=== PATIENT | female | born 1945 | race Caucasian/White ===

== ENCOUNTER 2021-05-22 05:55 | Day surgery (SDC) | payer MEDICARE ==
[2021-05-21 12:40] LABS: BASOPHILS % (AUTO) 0.4 % (0-1); EOSINOPHILS # (AUTO) 0.1 X10'3 (0-0.9); EOSINOPHILS % (AUTO) 1.1 % (0-6); HEMOGLOBIN 13.1 g/dl (12.0-16.0); LYMPHOCYTES # (AUTO) 2.6 X10'3 (1.1-4.8); LYMPHOCYTES % (AUTO) 36.6 % (21-51); MEAN CORPUSCULAR HEMOGLOBIN 27.6 PG (27.0-31.0); MEAN CORPUSCULAR HGB CONC 32.7 g/dL (33.0-36.5); MEAN CORPUSCULAR VOLUME 84.5 FL (78-98); MEAN PLATELET VOLUME 7.8 FL (7.4-10.4); MONOCYTES # (AUTO) 0.9 X10'3 (0-0.9); MONOCYTES % (AUTO) 12.7 % (2-12); NEUTROPHILS # (AUTO) 3.5 X10'3 (1.8-7.7); NEUTROPHILS % (AUTO) 49.2 % (42-75); PLATELET COUNT 223 X10'3 (140-440); RED BLOOD COUNT 4.73 X10'6 (4.20-5.60)
[2021-05-21 12:43] LABS: APTT 26 SECONDS (22-32)
[2021-05-21 12:51] LABS: ALBUMIN 3.5 G/DL (3.4-5.0); ANION GAP 10 (8-16); BLOOD UREA NITROGEN 17 MG/DL (7-18); CHLORIDE 106 MMOL/L (99-107); CREATININE 0.63 MG/DL (0.40-0.90); GLUCOSE 111 MG/DL (70-104); POTASSIUM 3.7 MMOL/L (3.5-5.1); SODIUM 142 MMOL/L (135-145); TOTAL CARBON DIOXIDE 26.1 MMOL/L (24-32); eGFR > 90 ML/MIN
[~2021-05-22] VITALS: Ht 167.6 cm; Wt 66.4 kg
[2021-05-22] VITALS (12 sets, daily range): BP systolic 91–122; BP diastolic 53–78
[2021-05-22] MEDS ORDERED: acetylcysteine 200 MG/ml 4ml vial PO SCH (06:18)
[2021-05-22] MEDS ORDERED: diphenhydrAMINE 25mg capsule PO PRN (06:20)
[2021-05-22] MEDS ORDERED: METF-1203 PO (06:21)
[2021-05-22] MEDS ORDERED: TRAM50TA2 PO (06:21)
[2021-05-22] MEDS ORDERED: SIMV-45 PO (06:21)
[2021-05-22] MEDS ORDERED: LEVO75TA7 PO (06:21)
[2021-05-22] MEDS ORDERED: OMEP10CA5 PO (06:21)
[2021-05-22] MEDS ORDERED: Tylenol PM PO (06:21)
[2021-05-22] MEDS ORDERED: LIDOcaine/PRILOcaine 5gm cream TP ONE (07:00)
[2021-05-22] MEDS: normal saline 1,000 ML IV SCH ×2 (07:09→12:01)
[2021-05-22] MEDS ORDERED: iohexol 350MG/ML 100ml bottle IV ONE ×2 (07:28→08:54)
[2021-05-22] MEDS ORDERED: fentaNYL/PF 50MCG/1 ML 2ML syringe ONE (07:28)
[2021-05-22] MEDS ORDERED: iohexol 350 MG/ML 50ML vial IV ONE (07:28)
[2021-05-22] MEDS ORDERED: verapamil 2.5 mg/ml inj IV ONE (07:28)
[2021-05-22] MEDS ORDERED: heparin 1,000unit/ml 10ml vial 10 ML ONE (07:28)
[2021-05-22] MEDS ORDERED: LIDOcaine 1% (10mg/ml)w/preservative inj. 20ml MDV ONE (07:28)
[2021-05-22] MEDS ORDERED: midazolam 1 mg/ML 2ml injection ONE (07:28)
[2021-05-22] MEDS ORDERED: nitroGLYCERIN-Tridil 50MG/D5W 250 ML IV ONE (07:28)
[2021-05-22 08:44] LABS: ISTAT HGB ART 12.6 g/dl (12.0-16.0); ISTAT Hct ART 37 %PCV (35-48); ISTAT O2 SATURATION ARTERIAL 97 % (95-98); ISTAT SOURCE ART
[2021-05-22] MEDS ORDERED: heparin 25,000 UNIT/250ml bag 250 ML IV ONE (08:51)
[2021-05-22] MEDS ORDERED: clopidogrel 300mg tablet ONE (09:12)
[2021-05-22] MEDS ORDERED: aspirin 81mg tab.chew PO ONE (10:00)
[2021-05-22 10:13] LABS: ISTAT Hct MIX 36 %PCV (35-48); ISTAT O2 SATURATION MIX VENOUS 73 % (60-80); ISTAT SOURCE VEN
--- NOTE | 2021-05-22 10:22 | NUR ---
Pt ate 100% of breakfast tray. Site stable. Vasc band in place. No s/s of bleeding or infection. Right AC dressing redressed. VS stable as charted.
--- NOTE | 2021-05-22 15:22 | NUR ---
Pt's returned with filled prescription for clopidogrel and atorvastatin, pt states she "has ordered aspirin at home" as ordered. Educated pt on administration, side effects of medication and answered questions.
[2021-05-23] MEDS ORDERED: aspirin 81mg, enteric-coated 1 TAB TABLET.DR PO SCH (08:00)
== END 2021-05-22 14:10 | disposition home or self-care (01) ==
LOC: SSTAY O 05:55
PROVIDERS: ATTEND Internal Medicine Cardiovascular Disease
DX: R94.39 Abnormal result of other cardiovascular function study (principal); I25.10 Atherosclerotic heart disease of native coronary artery without angina pectoris; E78.5 Hyperlipidemia, unspecified; E11.9 Type 2 diabetes mellitus without complications; G47.30 Sleep apnea, unspecified; E03.9 Hypothyroidism, unspecified; M81.0 Age-related osteoporosis without current pathological fracture; M54.30 Sciatica, unspecified side; F32.A Depression, unspecified; Z87.440 Personal history of urinary (tract) infections; Z86.718 Personal history of other venous thrombosis and embolism; Z98.890 Other specified postprocedural states; Z90.49 Acquired absence of other specified parts of digestive tract; Z90.710 Acquired absence of both cervix and uterus; Z88.2 Allergy status to sulfonamides; Z88.8 Allergy status to other drugs, medicaments and biological substances; Z79.899 Other long term (current) drug therapy; Z79.01 Long term (current) use of anticoagulants
CPT/HCPCS: 36415; 76937; 80048; 82803; 82948; 85014; 85025; 85347; 85610; 85730; 93005; 93460; 99152; 99153; C1725; C1751; C1769; C1874; C1894; C9600; J1644; J2250; J3010; J3490; J7030; Q0163; Q9967; A4620; A5120; A6258

== ENCOUNTER 2022-06-21 15:44 | Emergency (ER) | payer MEDICARE ==
[~2022-06-21] VITALS: Ht 167.6 cm; Wt 58.0 kg
[~2022-06-21 15:44] MED LIST: LEVO75TA7 PO; METF-1203 PO; OMEP10CA5 PO; SIMV-45 PO; TRAM50TA2 PO; Tylenol PM PO
[2022-06-21] MEDS ORDERED: normal saline 1000ml 1,000 ML IV ONE (16:25)
[2022-06-21 16:28] LABS: BASOPHILS # (AUTO) 0.1 X10'3 (0-0.2); BASOPHILS % (AUTO) 0.4 % (0-1); EOSINOPHILS % (AUTO) 0.3 % (0-6); HEMATOCRIT 40.4 % (35.0-45.0); HEMOGLOBIN 13.3 g/dl (12.0-16.0); LYMPHOCYTES # (AUTO) 2.2 X10'3 (1.1-4.8); LYMPHOCYTES % (AUTO) 15.6 % (21-51); MEAN CORPUSCULAR HEMOGLOBIN 28.1 PG (27.0-31.0); MEAN CORPUSCULAR VOLUME 85.1 FL (78-98); MEAN PLATELET VOLUME 7.5 FL (7.4-10.4); MONOCYTES # (AUTO) 1.9 X10'3 (0-0.9); MONOCYTES % (AUTO) 13.4 % (2-12); NEUTROPHILS # (AUTO) 10.1 X10'3 (1.8-7.7); NEUTROPHILS % (AUTO) 70.3 % (42-75); PLATELET COUNT 269 X10'3 (140-440); RED BLOOD COUNT 4.75 X10'6 (4.20-5.60); RED CELL DISTRIBUTION WIDTH 15.1 % (11.5-14.5); WHITE BLOOD COUNT 14.3 X10'3 (4.5-11.0)
[2022-06-21 16:52] LABS: ALANINE AMINOTRANSFERASE 15 U/L (12-78); ALBUMIN 3.3 G/DL (3.4-5.0); ALKALINE PHOSPHATASE 78 IU/L (46-116); ANION GAP 10 (8-16); ASPARTATE AMINO TRANSFERASE 22 U/L (10-37); BILIRUBIN,TOTAL 0.6 MG/DL (0.1-1.0); BLOOD UREA NITROGEN 9 MG/DL (7-18); CALCIUM 9.1 MG/DL (8.5-10.1); CHLORIDE 101 MMOL/L (99-107); CREATININE 0.69 MG/DL (0.40-0.90); GLUCOSE 136 MG/DL (70-104); LIPASE < 50 U/L (73-393); POTASSIUM 3.4 MMOL/L (3.5-5.1); SODIUM 137 MMOL/L (135-145); TOTAL CARBON DIOXIDE 26.3 MMOL/L (24-32); TOTAL PROTEIN 6.6 G/DL (6.4-8.2); eGFR 83 ML/MIN
[2022-06-21 16:58] LABS: CLARITY,URINE CLOUDY (Clear); GLUCOSE, URINE NEGATIVE (Neg); KETONES,URINE 15 mg/dl (Neg); LEUKOCYTE ESTERASE ,URINE NEGATIVE (Neg); NITRITES, URINE NEGATIVE (Neg); OCCULT BLOOD,URINE NEGATIVE (Neg); PROTEIN,URINE TRACE mg/dl (Neg); UROBILINOGEN,URINE 0.2 E.U/dL (0.2-1.0)
[2022-06-21 17:03] LABS: COLOR,URINE DARK YELLOW (Yellow); UA COLLECTION TYPE CLN CATCH MIDSTREAM
[2022-06-21 17:04] LABS: BACTERIA,URINE FEW /HPF (Neg); MUCUS STRANDS MANY /LPF (Neg); RBC,URINE NONE SEEN /HPF (0-2); SQUAMOUS EPITHELIAL CELL,UR FEW /LPF (FEW); WBC,URINE 0-4 /HPF (0-4)
[2022-06-21] MEDS ORDERED: ringers solution, lacted 1,000 ML IV ONE (17:15)
--- NOTE | 2022-06-21 18:12 | NUR ---
PT HAD 3 ML OF STOOL THAT APPEARED MUCOUS LIKE AND WHITE. STOOL MIXED WITH URINE SO RN WAS UNABLE TO COLLECT SAMPLE.
[2022-06-21] MEDS ORDERED: VANC125C5 PO (18:59)
[2022-06-21] MEDS ORDERED: azithromycin 250mg tablet PO ONE (19:00)
[2022-06-21 19:34] VITALS: BP 103/53
[2022-06-22 10:18] LABS: C DIFF SPECIMEN=DIARRHEA? ACCEPTABLE; C DIFFICILE TOXINS A&B POSITIVE (Neg)
== END 2022-06-21 19:36 | disposition home or self-care (01) ==
LOC: ER 15:45
DX: R19.7 Diarrhea, unspecified (principal); Z88.1 Allergy status to other antibiotic agents; Z88.2 Allergy status to sulfonamides
CPT/HCPCS: 36415; 80053; 81001; 82948; 83690; 85025; 87045; 87046; 87324; 87449; 96360; 96361; 99284; J7030; J7120